=== PATIENT | female | born 1945 | race Caucasian/White ===

== ENCOUNTER → 2016-12-24 | Outpatient (CLI) | payer OTHER ==
[~2016-12-24] MED LIST: ASPIRIN LO-DOSE81 MG PO; GLUCOPHAGE500 MG PO; LIPITOR40 MG PO; VESICARE5 MG PO; ZESTORETIC 20-1 EACH PO
== END | disposition disaster alternative care site (69) ==
LOC: GBCOE 08:25
DX: Z12.31 Encounter for screening mammogram for malignant neoplasm of breast (principal)
CPT/HCPCS: G0202